=== PATIENT | male | born 1945 | race Caucasian/White ===

== ENCOUNTER 2017-02-22 08:19 | Inpatient (IN) | payer BC, MEDICARE ==
[~2017-02-22] VITALS: Ht 188 cm; Wt 81.0 kg
[2017-02-22 08:29] VITALS: BP 150/70; PULSE 67; RESP 18; TEMP 98.1; O2SAT 96
--- NOTE | 2017-02-22 09:17 | PD ---
HPI Chief Complaint: Fall Time Seen by Provider: 09:00 Travel History International Travel<30 days: No Contact w/Intl Traveler<30days: No Traveled to known affect area: No History of Present Illness HPI 71-year-old male complains of left hip pain and right chest wall pain. Patient states that he fell 5 days ago and injured his right chest wall. Patient states that he has sharp pain localized the posterior aspect the right lower rib cage area. Patient fell this morning and complained left hip pain. Patient denies any headache. Patient denies any head injury. Patient denies any neck pain. Patient denies any shortness of breath. Patient denies abdominal pain. Patient denies any back pain. Patient denies any focal weakness or numbness of the extremity. Patient has history of back surgery in the past. Patient has history hypothyroidism and constipation. PFSH Social History Alcohol Use: No Tobacco Use: No Substance Use: No Allergies-Medications (Allergen,Severity, Reaction): Uncoded Allergies: All Mycin's (Allergy, Mild, 02/22/17) Review of Systems General / Constitutional: No: Fever Eyes: No: Visual changes HENT: No: Headaches Cardiovascular: No: Chest Pain or Discomfort Respiratory: No: Shortness of Breath Gastrointestinal: No: Abdominal Pain Genitourinary: No: Dysuria Musculoskeletal: Positive: Pain Skin: No Rash Neurologic: No: Weakness Psychiatric: No: Depression Endocrine: No: Polydipsia Hematologic/Lymphatic: No: Easy Bruising Physical Exam Narrative GENERAL: Well-nourished, well-developed patient. SKIN: Focused skin assessment warm/dry. HEAD: Normocephalic. EYES: No scleral icterus. No injection or drainage. NECK: Supple, trachea midline. No JVD or lymphadenopathy. CARDIOVASCULAR: Regular rate and rhythm without murmurs, gallops, or rubs. RESPIRATORY: Breath sounds equal bilaterally. No accessory muscle use. GASTROINTESTINAL: Abdomen soft, non-tender, nondistended. MUSCULOSKELETAL: Mild tenderness on Palpation right rib cage area midaxial line the mid back area. No crepitus no deformity noted. Breath sounds equal bilaterally. Patient has moderate to severe tenderness on palpation left hip. Unable to elicit range of motion of the left hip secondary to pain. Sensorimotor function distally intact. BACK: Nontender without obvious deformity. No CVA tenderness. Neurologic exam normal. Data Data Last Documented VS Vital Signs Date Time Temp Pulse Resp B/P (MAP) Pulse Ox O2 Delivery O2 Flow Rate FiO2 02/22/17 09:35 96 02/22/17 08:41 Room Air 02/22/17 08:29 98.1 67 18 150/70 (96) Orders Orders Electrocardiogram (02/22/17 09:06) Complete Blood Count With Diff (02/22/17 09:06) Comprehensive Metabolic Panel (02/22/17 09:06) Prothrombin Time / Inr (Pt) (02/22/17 09:06) Act Partial Throm Time (Ptt) (02/22/17 09:06) Urinalysis - C+S If Indicated (02/22/17 09:06) Chest, Single Ap (02/22/17 09:06) Iv Access Insert/Monitor (02/22/17 09:06) Ecg Monitoring (02/22/17 09:06) Oximetry (02/22/17 09:06) Hip, Uni(Ap&Lat) W Ap Pelvis (02/22/17 09:06) Sodium Chlor 0.9% 1000 Ml Inj (Ns 1000 M (02/22/17 11:00) Morphine Inj (Morphine Inj) (02/22/17 11:00) Ondansetron Inj (Zofran Inj) (02/22/17 11:00) Type And Screen (02/22/17 10:58) Consult Orthopedic (02/22/17 ) Labs Laboratory Tests Test 02/22/17 09:20 White Blood Count 8.9 TH/MM3 Red Blood Count 4.17 MIL/MM3 Hemoglobin 9.8 GM/DL Hematocrit 31.2 % Mean Corpuscular Volume 74.8 FL Mean Corpuscular Hemoglobin 23.5 PG Mean Corpuscular Hemoglobin Concent 31.5 % Red Cell Distribution Width 18.0 % Platelet Count 212 TH/MM3 Mean Platelet Volume 7.6 FL Neutrophils (%) (Auto) 90.7 % Lymphocytes (%) (Auto) 3.6 % Monocytes (%) (Auto) 5.2 % Eosinophils (%) (Auto) 0.1 % Basophils (%) (Auto) 0.4 % Neutrophils # (Auto) 8.1 TH/MM3 Lymphocytes # (Auto) 0.3 TH/MM3 Monocytes # (Auto) 0.5 TH/MM3 Eosinophils # (Auto) 0.0 TH/MM3 Basophils # (Auto) 0.0 TH/MM3 CBC Comment DIFF FINAL Differential Comment Prothrombin Time 10.5 SEC Prothromb Time International Ratio 1.0 RATIO Activated Partial Thromboplast Time 27.0 SEC Blood Urea Nitrogen 20 MG/DL Creatinine 1.08 MG/DL Random Glucose 104 MG/DL Total Protein 6.7 GM/DL Albumin 3.5 GM/DL Calcium Level 8.7 MG/DL Alkaline Phosphatase 86 U/L Aspartate Amino Transf (AST/SGOT) 18 U/L Alanine Aminotransferase (ALT/SGPT) 16 U/L Total Bilirubin 0.5 MG/DL Sodium Level 140 MEQ/L Potassium Level 4.2 MEQ/L Chloride Level 106 MEQ/L Carbon Dioxide Level 22.7 MEQ/L Anion Gap 11 MEQ/L Estimat Glomerular Filtration Rate 67 ML/MIN [facility] Medical Decision Making Medical Screen Exam Complete: Yes Emergency Medical Condition: Yes Interpretation(s) Last Impressions Chest X-Ray 02/22/17 0906 Signed Impressions: Service Date/Time: Wednesday, February 22, 2017 10:11 - CONCLUSION: 1. No displaced rib fractures or pneumothorax. 2. Mild right lung base atelectasis. Carlos Manuel Steen MD 10:40 AM. X-ray left hip show subcapital femoral neck fracture. CBC WBC 8.9. Hemoglobin 9.8 hematocrit 31.2. MCV 74.8. 90 neutrophil. CMP within normal limit. Differential Diagnosis Differential diagnosis including contusion, fracture, dislocation. Narrative Course 71-year-old male with left hip injury and right chest wall injury. Right chest wall injury 5 days ago and left hip injury this morning. Normal saline solution 100 cc an hour. Morphine 2 mg IV. Zofran 4 mg IV. Patient will be admitted to the medical service with orthopedist consultation. Pending surgery. Diagnosis Primary Impression: Fracture of femoral neck, left, closed Qualified Codes: S72.002A - Fracture of unspecified part of neck of left femur , initial encounter for closed fracture Admitting Information Admitting Physician Requests: Admit Geovanny Ross MD Feb 22, 2017 09:17
[2017-02-22 09:35] VITALS: O2SAT 96
[2017-02-22 09:39] LABS: AUTOMATED NEUTROPHIL # 8.1 TH/MM3 (1.8-7.7); BASOPHIL % 0.4 % (0.0-2.0); EOSINOPHIL % 0.1 % (0.0-4.0); HEMATOCRIT 31.2 % (39.0-51.0); HEMO FLAGS DIFF FINAL; LYMPH % 3.6 % (9.0-44.0); LYMPHOCYTE # 0.3 TH/MM3 (1.0-4.8); MEAN CELL VOLUME 74.8 FL (80.0-100.0); MEAN CORPUSCULAR HEMOGLOBIN 23.5 PG (27.0-34.0); MEAN CORPUSCULAR HGB CONC 31.5 % (32.0-36.0); MONO % 5.2 % (0.0-8.0); NEUT % 90.7 % (16.0-70.0); PLATELET COUNT 212 TH/MM3 (150-450); RED BLOOD COUNT 4.17 MIL/MM3 (4.50-5.90); WHITE BLOOD COUNT 8.9 TH/MM3 (4.0-11.0)
[2017-02-22 09:50] LABS: PROTHROMBIN TIME - PATIENT 10.5 SEC (9.8-11.6)
[2017-02-22 10:00] LABS: ANION GAP 11 MEQ/L (5-15); AST (GOT) 18 U/L (15-37); BICARBONATE 22.7 MEQ/L (21.0-32.0); BLOOD UREA NITROGEN 20 MG/DL (7-18); CHLORIDE 106 MEQ/L (98-107); GLOMERULAR FILTRATION RATE 67 ML/MIN (>89); POTASSIUM 4.2 MEQ/L (3.5-5.1); SODIUM (NA) 140 MEQ/L (136-145)
[2017-02-22 10:04] LABS: ALKALINE PHOSPHATASE 86 U/L (45-117); ALT (GPT) 16 U/L (12-78); TOTAL BILIRUBIN ADULT 0.5 MG/DL (0.2-1.0)
--- NOTE | 2017-02-22 10:31 | RADRPT ---
EXAM DATE/TIME: 02/22/2017 10:11 [facility] COMPARISON: No previous studies available for comparison. INDICATIONS : Right posterior rib pain after falling last night. MEDICAL HISTORY : Chronic obstructive pulmonary disease. SURGICAL HISTORY : Right shoulder replacement. ENCOUNTER: Initial ACUITY: 2 days PAIN SCORE: 10/10 LOCATION: Right posterior rib pain. FINDINGS: Mild diffuse interstitial prominence with mild linear brain opacities at the right lung base. No sign ificant pneumothorax. Cardiac silhouette is within normal limits. Slight mediastinal prominence is li lakshmi due to rotation and portable technique. No displaced rib fractures are noted. Right shoulder art hroplasty in place. CONCLUSION: 1. No displaced rib fractures or pneumothorax. 2. Mild right lung base atelectasis. Carlos Manuel Steen MD on February 22, 2017 at 10:27 Board Certified Radiologist. This report was verified electronically.
--- NOTE | 2017-02-22 10:43 | RADRPT ---
EXAM DATE/TIME: 02/22/2017 09:57 [facility] COMPARISON: No previous studies available for comparison. INDICATIONS : Left hip pain after falling last night. MEDICAL HISTORY : Chronic obstructive pulmonary disease. SURGICAL HISTORY : Fusion, lumbar. ENCOUNTER: Initial ACUITY: 2 days PAIN SCORE: 10/10 LOCATION: Left posterior femur. FINDINGS: Examination is abnormal. There is a subcapital left femoral neck fracture. The remaining osseous stru ctures are intact. Joint spaces are grossly anatomic. Surgical sutures are noted in the lower lumbar spine. No significant soft tissue pneumonia. CONCLUSION: 1. Subcapital left femoral neck fracture. Carlos Manuel Steen MD on February 22, 2017 at 10:39 Board Certified Radiologist. This report was verified electronically.
[2017-02-22] MEDS ORDERED: ONDANSETRON HCL 4 MG/2 ML VIAL IV PUSH ONE ×2 (11:00→12:00)
[2017-02-22] MEDS ORDERED: MORPHINE SULFATE 2 MG/ML INJ IV PUSH ONE (11:00)
[2017-02-22] MEDS: SODIUM CHLOR 0.9% 1000 ML INJ 1,000 ML IV SCH ×2 (11:22→15:00)
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
[2017-02-22] MEDS ORDERED: HYDR-3580 PO (11:41)
[2017-02-22] MEDS ORDERED: XARE10TA PO (11:41)
[2017-02-22] MEDS ORDERED: CALCTAB19 PO (11:41)
[2017-02-22] MEDS ORDERED: WALKER/ADULT/FO1 MIS (11:41)
[2017-02-22] MEDS ORDERED: VITA500012 PO (11:41)
[2017-02-22] MEDS ORDERED: VITA2000 PO (11:41)
[2017-02-22] MEDS ORDERED: ASPI-183 PO (11:41)
[2017-02-22] MEDS ORDERED: ROCURONIUM INJ 50 MG/5 ML SYRINGE IV PUSH ONE (12:00)
[2017-02-22] MEDS ORDERED: PROPOFOL 200 MG/20 ML AMP IV ONE (12:00)
[2017-02-22] MEDS ORDERED: ePHEDrine/NS 25 MG/5 ML SYRINGE IV ONE (12:00)
[2017-02-22] MEDS ORDERED: GLYCOPYRROLATE 1 MG/5 ML SYRINGE IV PUSH ONE (12:00)
[2017-02-22] MEDS ORDERED: DEXAMETHASONE SOD PHOS 4 MG/ML VIAL IV ONE (12:00)
[2017-02-22] MEDS ORDERED: NEOSTIGMINE 5 MG/5 ML SYRINGE IV PUSH ONE (12:00)
[2017-02-22] MEDS ORDERED: LIDOCAINE HCL 1% PF 5 ML SYRINGE OTHER ONE (12:00)
--- NOTE | 2017-02-22 12:30 | RADRPT ---
EXAM DATE/TIME: 02/22/2017 11:56 [facility] COMPARISON: No previous studies available for comparison. INDICATIONS : Left knee pain after falling yesterday. MEDICAL HISTORY : Chronic obstructive pulmonary disease. SURGICAL HISTORY : Fusion, lumbar. ENCOUNTER: Initial ACUITY: 2 days PAIN SCORE: 7/10 LOCATION: Left patella. FINDINGS: Two view examination of the left knee demonstrates no evidence of fracture or dislocation. Some william ening of the femoral condyles without acute fracture Bony mineralization is normal. The suprapatella r soft tissues have a normal configuration. CONCLUSION: Unremarkable limited examination of the left knee. Pasquale Martinez MD on February 22, 2017 at 12:27 Board Certified Radiologist. This report was verified electronically.
[2017-02-22 12:39] VITALS: BP 142/63; PULSE 75; RESP 16; O2SAT 96
[2017-02-22] MEDS ORDERED: ACETAMINOPHEN 1000 MG/100 ML 100 ML IV ONE (13:05)
[2017-02-22] MEDS ORDERED: ceFAZolin INJ 1,000 MG VIAL ONE (13:23)
[2017-02-22] MEDS ORDERED: ceFAZolin 2 GM PREMIX 50 ML ONE (13:23)
[2017-02-22] MEDS ORDERED: TIRO150C PO (13:33)
[2017-02-22] MEDS ORDERED: LINA290C PO (13:33)
[2017-02-22] MEDS ORDERED: FENT50DI T-DERMAL (13:33)
[2017-02-22] MEDS ORDERED: LACTATED RINGER'S 1000 ML IV PRN (14:15)
[2017-02-22] MEDS ORDERED: SODIUM CHLORID 0.9% 500 ML IV PRN (14:15)
[2017-02-22] MEDS ORDERED: METOPROLOL TARTRATE 25 MG TAB PO PRN (14:15)
[2017-02-22] MEDS ORDERED: CHLORHEXIDINE GLUCONATE 2 % 1 PACK (2 CLOTHS) TOPICAL PRN (14:15)
[2017-02-22] MEDS ORDERED: POVIDONE IODINE 5% (ANTISEPSIS KIT) 4 APPLICATIONS EACH NARE PRN (14:15)
--- NOTE | 2017-02-22 15:08 | PD.OP ---
cc: Saran Arguello MD Operative Report Date of Surgery: Feb 22, 2017 Preoperative Diagnosis: Left femoral neck fracture Postoperative Diagnosis: Procedure: Left hip hemiarthroplasty Anesthesia: Gen. Surgeon: Saran Arguello Narrow Gauge Brakeman(s): JAMES Tierney PA-C The surgical procedure was assisted by my physician trust manager assistant. My P.A. presence was necessary throughout this case for the manipulation and positioning of the surgical extremity. My P.A. was assisting me throughout the duration of this procedure. The skill set of a physician trust manager assistant was medically necessary to complete this procedure. During the surgical case the cardiac cath technologist was working at the back table and the physician trust manager assistant was directly assisting me. Operation and Findings: PLAN OF ACTIVITY Weight bear as tolerated. IMPLANTS USED DePuy Corail size 16 stem with size [3] bipolar head and [+5] neck. DRAIN: 7 mm Sylvester-To drain DETAILS OF PROCEDURE This patient was brought into the operating room and placed on the OR table. The patient was given anesthesia. The patient received IV antibiotics. The patient was then placed in lateral decubitus position. The hip and leg were prepped with alcohol, followed by Hibiclens and draped in a usual sterile fashion. Clean air was used for this procedure. Time out procedure was performed. The procedure began with a 5 inch incision over the posterolateral hip. The subcutaneous tissue was dissected with the Bovie. The iliotibial band were split in line with fibers. The Charnley retractor was placed. The piriformis and external rotators were released from the femur and tagged with a #1 Vicryl suture. The capsule is now incised and tagged with #1 Vicryl. The femoral neck fracture was now visualized. A corkscrew was now used to remove the femoral head. The femoral head was sized and measured. Soft tissue was now protected. The hip skid was placed underneath the femoral neck. An oscillating saw was used to make a femoral neck cut. At this point attention was turned to preparation of the proximal femur. A box osteotome was used to remove the lateral cortex of the femoral neck. The T- handle reamer was used to open the femoral canal. Next, the canal was broached. A lateralizing reamer was used to help lateralize the prosthesis. At this point a trial head and neck were placed. The hip was reduced. The patient was found to have excellent stability with good range of motion. Trial components were removed. Soft tissue and bone were thoroughly irrigated. A Corail stem was now opened. The stem was now impacted into the proximal femur. Care was taken to keep appropriate anteversion. The head and neck were now impacted onto the stem. The hip was again reduced. The hip was found to have good range of motion and good stability. Leg lengths were clinically equal. The wound was thoroughly irrigated. The capsule, piriformis and iliotibial band were closed with #1 Vicryl. Subcutaneous tissue was closed with 3-0 Vicryl. The skin was closed with juan. A sterile dressing was applied with Primapore. The patient was placed into a knee immobilizer. The patient was awakened and transferred to the recovery room in stable condition. Needle and sponge counts were correct. Saran Arguello MD Feb 22, 2017 15:08
--- NOTE | 2017-02-22 15:12 | EKG ---
Date Performed: 02/22/2017 Time Performed: 09:31:40 PTAGE: 71 years EKG: Baseline artifact present Sinus rhythm WITH OCCASIONAL SUPRAVENTRICULAR PREMATURE COMPLEXES BORDERLINE ECG NO PREVIOUS TRACING DOCTOR: Juan Seo Interpretating Date/Time 02/22/2017 15:11:05
[2017-02-22] MEDS ORDERED: MORPHINE SULFATE 4 MG/ML INJ IV PUSH PRN (15:30)
[2017-02-22] MEDS ORDERED: *morphine SULFATE 4 MG/ML PERIprocedure ONLY ONE (15:48)
[2017-02-22] MEDS ORDERED: *HYDROmorphone PF 1 MG VIAL PERIprocedural Use ONLY ONE ×2 (15:57→16:26)
[2017-02-22] MEDS ORDERED: Post-op Orders (for Pharmacy) XX ONE (16:00)
[2017-02-22] MEDS ORDERED: ERGOCALCIFEROL (VIT D2) 50,000 UNIT CAP PO ONE (16:00)
--- NOTE | 2017-02-22 16:10 | RADRPT ---
EXAM DATE/TIME: 02/22/2017 15:24 [facility] COMPARISON: HIP LEFT (AP&LAT 2/3VWS) W AP PELVIS, February 22, 2017, 9:57. INDICATIONS : Left hip post op. MEDICAL HISTORY : Chronic obstructive pulmonary disease. SURGICAL HISTORY : Fusion, lumbar. ENCOUNTER: Initial ACUITY: 1 day PAIN SCORE: 8/10 LOCATION: Left hip. FINDINGS: 4 views of the pelvis and left hip reveal diffuse osteopenia. There has been interval placement of a left hip prosthesis. This is in position. No fracture or dislocation. Surgical drain observed. 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 Lumbar orthopedic hardware partially seen within the lower lumbar spine. Injection granulomas seen overlying the left hip. CONCLUSION: Left hip prosthesis in good position. Nilton Joel Jr., MD on February 22, 2017 at 16:06 Board Certified Radiologist. This report was verified electronically.
[2017-02-22 17:00] VITALS: BP 110/60; PULSE 60; RESP 16; TEMP 97; O2SAT 94
[2017-02-22] MEDS ORDERED: DO NOT ADM ANY ANTICOAGULANT DRUGS PRN (17:15)
[2017-02-22] MEDS: ACETAMINOPHEN/HYDROcodone 325 MG/7.5 MG TAB PO PRN ×2 (17:57→20:56)
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
[2017-02-22] MEDS: ceFAZolin 2 GM PREMIX 50 ML IV SCH (19:11)
[2017-02-22 19:45] VITALS: BP 113/61; PULSE 60; RESP 17; TEMP 97.1; O2SAT 98
[2017-02-23] VITALS (9 sets, daily range): BP systolic 86–142; BP diastolic 44–71; PULSE 60–89; RESP 17–18; TEMP 96–98.2; O2SAT 93–96
[2017-02-23] MEDS: ceFAZolin 2 GM PREMIX 50 ML IV SCH ×2 (00:43→05:23)
[2017-02-23] MEDS: ACETAMINOPHEN/HYDROcodone 325 MG/7.5 MG TAB PO PRN ×6 (00:44→22:44)
[2017-02-23] MEDS: LEVOTHYROXINE SODIUM 150 MCG TAB PO SCH (05:22)
[2017-02-23] MEDS: SODIUM CHLOR 0.9% 1000 ML INJ 1,000 ML IV SCH (05:22)
[2017-02-23] MEDS ORDERED: SODIUM CHLORID 0.9% 500 ML INJ 500 ML IV ONE (06:00)
[2017-02-23 06:50] LABS: BICARBONATE 25.2 MEQ/L (21.0-32.0); POTASSIUM 4.5 MEQ/L (3.5-5.1)
[2017-02-23 06:54] LABS: AUTOMATED NEUTROPHIL # 7.9 TH/MM3 (1.8-7.7); BASOPHIL # 0.1 TH/MM3 (0-0.2); BASOPHIL % 0.6 % (0.0-2.0); EOSINOPHIL # 0.2 TH/MM3 (0-0.4); EOSINOPHIL % 2.5 % (0.0-4.0); HEMATOCRIT 25.9 % (39.0-51.0); LYMPH % 7.8 % (9.0-44.0); LYMPHOCYTE # 0.7 TH/MM3 (1.0-4.8); MEAN CELL VOLUME 75.3 FL (80.0-100.0); MEAN CORPUSCULAR HEMOGLOBIN 23.9 PG (27.0-34.0); MEAN CORPUSCULAR HGB CONC 31.7 % (32.0-36.0); NEUT % 82.1 % (16.0-70.0); PLATELET COUNT 172 TH/MM3 (150-450); RED BLOOD COUNT 3.44 MIL/MM3 (4.50-5.90); WHITE BLOOD COUNT 9.6 TH/MM3 (4.0-11.0)
[2017-02-23 06:55] LABS: HEMO FLAGS AUTO DIFF
--- NOTE | 2017-02-23 06:56 | PD.ORT.PN ---
Subjective Subjective Remarks Resting comfortably. No new complaints Objective Vitals Vital Signs Date Time Temp Pulse Resp B/P (MAP) Pulse Ox O2 Delivery O2 Flow Rate FiO2 02/23/17 04:00 97.4 62 18 95/49 (64) 95 02/23/17 00:00 97.8 72 18 98/44 (62) 93 02/22/17 19:45 97.1 60 17 113/61 (78) 98 02/22/17 17:00 97.0 60 16 110/60 (77) 94 02/22/17 16:30 59 16 121/58 (79) 95 Nasal Cannula 2 02/22/17 16:15 51 16 113/57 (75) 96 Nasal Cannula 2 02/22/17 16:00 55 16 151/86 (107) 93 Nasal Cannula 2 02/22/17 15:45 79 16 133/83 (100) 91 Nasal Cannula 2 02/22/17 15:29 97.2 81 16 113/90 (98) 92 Nasal Cannula 2 02/22/17 12:39 75 16 142/63 (89) 96 Room Air 02/22/17 09:35 96 02/22/17 08:41 96 Room Air 02/22/17 08:29 98.1 67 18 150/70 (96) 96 I/O 02/22/17 02/22/17 02/22/17 02/23/17 02/23/17 02/23/17 07:00 15:00 23:00 07:00 15:00 23:00 Intake Total 400 ml 290 ml 120 ml Output Total 3750 ml 170 ml 150 ml Balance -3350 ml 120 ml -30 ml Intake Oral 240 ml 120 ml IV Total 50 ml Other 400 ml Output Urine Total 600 ml 150 ml 150 ml Drainage Total 20 ml Estimated Blood Loss 150 ml Other 3000 ml # Bowel Movements 0 0 Result Diagram: 02/22/17 0920 02/23/17 0602 Other Results Laboratory Tests Test 02/22/17 09:20 Prothromb Time International Ratio 1.0 RATIO Prothrombin Time 10.5 SEC (9.8-11.6) Imaging Last 24 hours Impressions Hip and Pelvis X-Ray 02/22/17 0906 Signed Impressions: Service Date/Time: Wednesday, February 22, 2017 09:57 - CONCLUSION: 1. Subcapital left femoral neck fracture. Carlos Manuel Steen MD Chest X-Ray 02/22/17 0906 Signed Impressions: Service Date/Time: Wednesday, February 22, 2017 10:11 - CONCLUSION: 1. No displaced rib fractures or pneumothorax. 2. Mild right lung base atelectasis. Carlos Manuel Steen MD Objective Remarks Left lower extremity: Clean dry dressings intact. Knee immobilizer in place. Knee immobilizer adjusted. Distally intact sensation good capillary refills with active dorsiflexion plantar flexion of foot Assessment & Plan Assessment and Plan Left hip hemiarthroplasty POD 1 Physical therapy weightbearing as tolerated with posterior hip precautions Knee immobilizer while in bed Lovenox Case management for rehabilitation placement Incentive spirometry We'll plan for discharge follow-up appointment with Magda or GALI in 2 weeks Ludwin Bloom Jr. Feb 23, 2017 06:56
[2017-02-23 07:36] LABS: OVALOCYTES 1+ (NORMAL); SCAN/DIFF AUTO DIFF CONFIRMED
--- NOTE | 2017-02-23 08:18 | HHI.PR ---
Subjective Remarks Pain is controlled by meds. no fever or chills. No n/v/d. Did not have a BM. No chest pain or sob. Objective Vitals Vital Signs Date Time Temp Pulse Resp B/P (MAP) Pulse Ox O2 Delivery O2 Flow Rate FiO2 02/23/17 07:40 Nasal Cannula 2.00 02/23/17 04:00 97.4 62 18 95/49 (64) 95 02/23/17 00:00 97.8 72 18 98/44 (62) 93 02/22/17 19:45 97.1 60 17 113/61 (78) 98 02/22/17 17:00 97.0 60 16 110/60 (77) 94 02/22/17 16:30 59 16 121/58 (79) 95 Nasal Cannula 2 02/22/17 16:15 51 16 113/57 (75) 96 Nasal Cannula 2 02/22/17 16:00 55 16 151/86 (107) 93 Nasal Cannula 2 02/22/17 15:45 79 16 133/83 (100) 91 Nasal Cannula 2 02/22/17 15:29 97.2 81 16 113/90 (98) 92 Nasal Cannula 2 02/22/17 12:39 75 16 142/63 (89) 96 Room Air 02/22/17 09:35 96 02/22/17 08:41 96 Room Air 02/22/17 08:29 98.1 67 18 150/70 (96) 96 I/O 02/22/17 02/22/17 02/22/17 02/23/17 02/23/17 02/23/17 07:00 15:00 23:00 07:00 15:00 23:00 Intake Total 400 ml 290 ml 120 ml Output Total 3750 ml 170 ml 150 ml Balance -3350 ml 120 ml -30 ml Intake Oral 240 ml 120 ml IV Total 50 ml Other 400 ml Output Urine Total 600 ml 150 ml 150 ml Drainage Total 20 ml Estimated Blood Loss 150 ml Other 3000 ml # Bowel Movements 0 0 Result Diagram: 02/23/17 0602 02/23/17 0602 Imaging Last Impressions Hip and Pelvis X-Ray 02/22/17 1500 Signed Impressions: Service Date/Time: Wednesday, February 22, 2017 15:24 - CONCLUSION: Left hip prosthesis in good position. Nilton Joel Jr., MD Knee X-Ray 02/22/17 1132 Signed Impressions: Service Date/Time: Wednesday, February 22, 2017 11:56 - CONCLUSION: Unremarkable limited examination of the left knee. Pasquale Martinez MD Chest X-Ray 02/22/17 0906 Signed Impressions: Service Date/Time: Wednesday, February 22, 2017 10:11 - CONCLUSION: 1. No displaced rib fractures or pneumothorax. 2. Mild right lung base atelectasis. Carlos Manuel Steen MD Objective Remarks GENERAL: This is a well-nourished, but somewhat weak appearing elderly man. CARDIOVASCULAR: Regular rate and rhythm without murmurs, gallops, or rubs. RESPIRATORY: Clear to auscultation. Breath sounds equal bilaterally. No wheezes , rales, or rhonchi. GASTROINTESTINAL: Abdomen soft, non-tender, nondistended. No hepato-splenomegaly , or palpable masses. No guarding. MUSCULOSKELETAL: Left hip and leg and reduced ROM due to fracture of left femoral neck. Blood flow and sensation intact in that leg. NEUROLOGICAL: Awake and alert. Cranial nerves II through XII intact. Motor and sensory grossly within normal limits. Five out of 5 muscle strength in all muscle groups. Normal speech. A/P Problem List: (1) Fracture of femoral neck, left, closed ICD Code: S72.002A - Fracture of unspecified part of neck of left femur, initial encounter for closed fracture Status: Acute Assessment and Plan Left femoral Neck Fracture - orthopedics (Dr. Man) s/p ORIF 02/22 - PT consult Chronic Pain - Multiple pain medications including Fentanyl patch - Consider tolerance if pain not adequately controlled - Holding home pain meds for now Chronic Constipation - Takes Linzess at home, not on formulary, gave permission to use DVT Prophylaxis - Lovenox Discharge Planning - Fell from a mobility scooter, so likely he will need a SNF-Rehab at [facility] when cleared by ortho Problem Qualifiers (1) Fracture of femoral neck, left, closed: Qualified Codes: S72.002A - Fracture of unspecified part of neck of left femur , initial encounter for closed fracture Jessica Alatorre MD Feb 23, 2017 08:18
[2017-02-23] MEDS ORDERED: FENT50DI T-DERMAL (08:20)
[2017-02-23] MEDS: CHOLECALCIFEROL (VIT D3) 5000 UNIT CAP PO SCH (10:22)
[2017-02-23] MEDS ORDERED: ONDANSETRON HCL 4 MG/2 ML VIAL IV PUSH PRN ×2 (14:15→14:30)
[2017-02-23] MEDS: ENOXAPARIN SODIUM 30 MG/0.3 ML SYRINGE SQ SCH (15:06)
--- NOTE | 2017-02-23 15:06 | HHI.DS ---
Discharge Summary Admission Date Feb 22, 2017 at 11:36 Discharge Date: Feb 23, 2017 Admitting Diagnosis fracture left femoral neck (1) Fracture of femoral neck, left, closed ICD Code: S72.002A - Fracture of unspecified part of neck of left femur, initial encounter for closed fracture Status: Acute Brief History - From Admission 71M with h/o hypothyroidism and recent fall with right bruised ribs had a fall of his mobility scooter when he drove off a sidewalk at [employer]. He denies any LOC or symptoms of stroke, basically he was just having a conversation and took his eyes off of the sidewalk. He is visiting his son from [place]. He admits he has been feeling weak over the past year or so, blames it on age. He denies any other major medical issues at this time. CBC/BMP: 02/23/17 0602 02/23/17 0602 Significant Findings Laboratory Tests Test 02/22/17 09:20 02/23/17 06:02 Red Blood Count 4.17 MIL/MM3 (4.50-5.90) 3.44 MIL/MM3 (4.50-5.90) Hemoglobin 9.8 GM/DL (13.0-17.0) 8.2 GM/DL (13.0-17.0) Hematocrit 31.2 % (39.0-51.0) 25.9 % (39.0-51.0) Mean Corpuscular Volume 74.8 FL (80.0-100.0) 75.3 FL (80.0-100.0) Mean Corpuscular Hemoglobin 23.5 PG (27.0-34.0) 23.9 PG (27.0-34.0) Mean Corpuscular Hemoglobin Concent 31.5 % (32.0-36.0) 31.7 % (32.0-36.0) Red Cell Distribution Width 18.0 % (11.6-17.2) 18.0 % (11.6-17.2) Neutrophils (%) (Auto) 90.7 % (16.0-70.0) 82.1 % (16.0-70.0) Lymphocytes (%) (Auto) 3.6 % (9.0-44.0) 7.8 % (9.0-44.0) Neutrophils # (Auto) 8.1 TH/MM3 (1.8-7.7) 7.9 TH/MM3 (1.8-7.7) Lymphocytes # (Auto) 0.3 TH/MM3 (1.0-4.8) 0.7 TH/MM3 (1.0-4.8) Blood Urea Nitrogen 20 MG/DL (7-18) 22 MG/DL (7-18) Estimat Glomerular Filtration Rate 67 ML/MIN (>89) 61 ML/MIN (>89) 25-Hydroxy Vitamin D Total 23.6 ng/ML (30-100) Ovalocytes 1+ (NORMAL) Calcium Level 8.1 MG/DL (8.5-10.1) Chloride Level 110 MEQ/L (98-107) Imaging Last Impressions Hip and Pelvis X-Ray 02/22/17 1500 Signed Impressions: Service Date/Time: Wednesday, February 22, 2017 15:24 - CONCLUSION: Left hip prosthesis in good position. Nilton Joel Jr., MD Knee X-Ray 02/22/17 1132 Signed Impressions: Service Date/Time: Wednesday, February 22, 2017 11:56 - CONCLUSION: Unremarkable limited examination of the left knee. Pasquale Martinez MD Chest X-Ray 02/22/17 0906 Signed Impressions: Service Date/Time: Wednesday, February 22, 2017 10:11 - CONCLUSION: 1. No displaced rib fractures or pneumothorax. 2. Mild right lung base atelectasis. Carlos Manuel Steen MD PE at Discharge GENERAL: This is a well-nourished, but somewhat weak appearing elderly man. CARDIOVASCULAR: Regular rate and rhythm without murmurs, gallops, or rubs. RESPIRATORY: Clear to auscultation. Breath sounds equal bilaterally. No wheezes , rales, or rhonchi. GASTROINTESTINAL: Abdomen soft, non-tender, nondistended. No hepato-splenomegaly , or palpable masses. No guarding. MUSCULOSKELETAL: Left hip and leg and reduced ROM due to fracture of left femoral neck. Blood flow and sensation intact in that leg. NEUROLOGICAL: Awake and alert. Cranial nerves II through XII intact. Motor and sensory grossly within normal limits. Five out of 5 muscle strength in all muscle groups. Normal speech. Pt Condition on Discharge: Stable Discharge Disposition: Discharge to SNF Discharge Time: > 30 minutes Discharge Instructions DIET: Follow Instructions for: Heart Healthy Diet Activities you can perform: Weight Bearing as Nathan Follow up Referrals: Orthopedics - 2 Weeks @ [facility] with Saran Man MD PCP Follow-up - 2-3 Days New Medications: Aspirin (Aspirin) 325 Mg Tab 325 MG PO DAILY for blood clot prevention, #14 TAB 0 Refills Calcium Carbonate-Vitamin D (Calcium 600+D 200) 600-200 Mg-Unit Tab 1 TAB PO BID for Nutritional Supplement for 30 Days, #60 TAB 0 Refills Cholecalciferol (Vitamin D3) 2,000 Unit Cap 2000 UNITS PO DAILY for Nutritional Supplement, #56 CAP 0 Refills Ergocalciferol (Ergocalciferol) 50,000 Unit Cap 26977 UNITS PO Q7D for Nutritional Supplement, #56 CAP Hydrocodone-Acetaminophen (Hydrocodone-Acetaminophen) 7.5 Mg-325 Mg Tab 1 TAB PO Q4H PRN for PAIN, #60 TAB 0 Refills Rivaroxaban (Xarelto) 10 Mg Tab 10 MG PO DAILY for Blood Clot Prevention for 14 Days, #14 TAB 0 Refills Walker/Adult/Folding (Walker/Adult/Folding) 1 Mis Mis EA .ROUTE DIRECTED, #1 0 Refills Continued Medications: Fentanyl Patch 72 HR (Fentanyl Patch 72 HR) 50 Mcg/Hr Patch 50 MCG T-DERMAL Q72H for Pain Management, #10 PATCH 0 Refills (This prescription has been renewed) Remove old patch when new one placed. Levothyroxine (Tirosint) 150 Mcg Cap 150 MCG PO DAILY for Thyroid, #30 CAP 0 Refills Linaclotide (Linzess) 290 Mcg Cap 290 MCG PO DAILY, CAP 0 Refills Jessica Alatorre MD Feb 23, 2017 15:06
[2017-02-23] MEDS ORDERED: fentaNYL 50 MCG/HR PATCH T-DERMAL SCH (21:00)
[2017-02-23] MEDS ORDERED: MORPHINE SULFATE 2 MG/ML INJ IV PUSH PRN (21:30)
[2017-02-24] MEDS: ACETAMINOPHEN/HYDROcodone 325 MG/7.5 MG TAB PO PRN ×7 (01:54→22:40)
[2017-02-24] MEDS: SODIUM CHLOR 0.9% 1000 ML INJ 1,000 ML IV SCH ×3 (01:55→23:00)
[2017-02-24] MEDS: LEVOTHYROXINE SODIUM 150 MCG TAB PO SCH (06:33)
--- NOTE | 2017-02-24 07:53 | PD.ORT.PN ---
Subjective Subjective Remarks Resting comfortably. No new complaints Objective Vitals Vital Signs Date Time Temp Pulse Resp B/P (MAP) Pulse Ox O2 Delivery O2 Flow Rate FiO2 02/23/17 23:27 97.8 60 18 117/66 (83) 95 02/23/17 19:55 98.2 72 18 136/71 (92) 95 02/23/17 18:15 96 Nasal Cannula 2.00 02/23/17 16:00 96.0 89 17 142/70 (94) 96 02/23/17 13:04 96 Nasal Cannula 2.00 02/23/17 12:00 96.9 70 18 102/58 (73) 93 02/23/17 08:00 97.8 63 18 86/52 (63) 96 I/O 02/23/17 02/23/17 02/23/17 02/24/17 02/24/17 02/24/17 07:00 15:00 23:00 07:00 15:00 23:00 Intake Total 120 ml 480 ml 480 ml 360 ml Output Total 150 ml 300 ml 650 ml Balance -30 ml 180 ml 480 ml -290 ml Intake Oral 120 ml 480 ml 480 ml 360 ml Output Urine Total 150 ml 300 ml 650 ml Bladder Scan Volume Amount 254 ml 654 ml # Voids 0 # Bowel Movements 0 0 0 0 Result Diagram: 02/23/17 0602 02/23/17 0602 Imaging Last 24 hours Impressions Hip and Pelvis X-Ray 02/22/17905 Signed Impressions: Service Date/Time: Wednesday, February 22, 2017 09:57 - CONCLUSION: 1. Subcapital left femoral neck fracture. Carlos Manuel Steen MD Chest X-Ray 02/22/17905 Signed Impressions: Service Date/Time: Wednesday, February 22, 2017 10:11 - CONCLUSION: 1. No displaced rib fractures or pneumothorax. 2. Mild right lung base atelectasis. Carlos Manuel Steen MD Objective Remarks Left lower extremity: Clean dry dressings intact. Knee immobilizer in place. Knee immobilizer adjusted. Distally intact sensation good capillary refills with active dorsiflexion plantar flexion of foot Assessment & Plan Assessment and Plan Left hip hemiarthroplasty POD 2 Physical therapy weightbearing as tolerated with posterior hip precautions Knee immobilizer while in bed Lovenox Case management for rehabilitation placement Dry dressings over incision. Leave in place Incentive spirometry We'll plan for discharge follow-up appointment with Magda or GALI in 2 weeks Ludwin Bloom Jr. Feb 24, 2017 07:53
[2017-02-24 08:00] VITALS: BP 123/74; PULSE 68; RESP 18; TEMP 97.5; O2SAT 95
[2017-02-24] MEDS: CHOLECALCIFEROL (VIT D3) 5000 UNIT CAP PO SCH (08:00)
[2017-02-24] MEDS ORDERED: DOCUSATE SODIUM 50 MG/SENNA 8.6 MG TAB PO SCH (09:00)
[2017-02-24] MEDS ORDERED: MAGNESIUM HYDROXIDE SUSP 30 ML CUP PO SCH (09:00)
--- NOTE | 2017-02-24 11:09 | HHI.PR ---
Subjective Remarks In bed feels nauseated and vomiting . Says she has achalasia and this is normal for him, says he is able to keep down some food. Antinausea meds helps some. No fever or chills. Pain is controlled by meds. No fever or chills. No constipation or diarrhea.. Objective Vitals Vital Signs Date Time Temp Pulse Resp B/P (MAP) Pulse Ox O2 Delivery O2 Flow Rate FiO2 02/24/17 08:04 Room Air 02/24/17 08:00 97.5 68 18 123/74 (90) 95 02/23/17 23:27 97.8 60 18 117/66 (83) 95 02/23/17 19:55 98.2 72 18 136/71 (92) 95 02/23/17 18:15 96 Nasal Cannula 2.00 02/23/17 16:00 96.0 89 17 142/70 (94) 96 02/23/17 13:04 96 Nasal Cannula 2.00 02/23/17 12:00 96.9 70 18 102/58 (73) 93 I/O 02/23/17 02/23/17 02/23/17 02/24/17 02/24/17 02/24/17 07:00 15:00 23:00 07:00 15:00 23:00 Intake Total 120 ml 480 ml 480 ml 360 ml Output Total 150 ml 300 ml 650 ml Balance -30 ml 180 ml 480 ml -290 ml Intake Oral 120 ml 480 ml 480 ml 360 ml Output Urine Total 150 ml 300 ml 650 ml Bladder Scan Volume Amount 254 ml 654 ml # Voids 0 # Bowel Movements 0 0 0 0 Result Diagram: 02/23/17 0602 02/23/17 0602 Imaging Last Impressions Hip and Pelvis X-Ray 02/22/17 1500 Signed Impressions: Service Date/Time: Wednesday, February 22, 2017 15:24 - CONCLUSION: Left hip prosthesis in good position. Nilton Joel Jr., MD Knee X-Ray 02/22/17 1132 Signed Impressions: Service Date/Time: Wednesday, February 22, 2017 11:56 - CONCLUSION: Unremarkable limited examination of the left knee. Pasquale Martinez MD Chest X-Ray 02/22/17 0906 Signed Impressions: Service Date/Time: Wednesday, February 22, 2017 10:11 - CONCLUSION: 1. No displaced rib fractures or pneumothorax. 2. Mild right lung base atelectasis. Carlos Manuel Steen MD Objective Remarks GENERAL: This is a well-nourished, but somewhat weak appearing elderly man. CARDIOVASCULAR: Regular rate and rhythm without murmurs, gallops, or rubs. RESPIRATORY: Clear to auscultation. Breath sounds equal bilaterally. No wheezes , rales, or rhonchi. GASTROINTESTINAL: Abdomen soft, non-tender, nondistended. No hepato-splenomegaly , or palpable masses. No guarding. MUSCULOSKELETAL: Left hip after surgery with dressing on c/d/di. Neurovascular intact. NEUROLOGICAL: Awake and alert. Cranial nerves II through XII intact. Motor and sensory grossly within normal limits. Five out of 5 muscle strength in all muscle groups. Normal speech. A/P Problem List: (1) Fracture of femoral neck, left, closed ICD Code: S72.002A - Fracture of unspecified part of neck of left femur, initial encounter for closed fracture Status: Acute Assessment and Plan Left femoral Neck Fracture - orthopedics (Dr. Man) s/p ORIF 02/22 - PT consult Chronic Pain - Multiple pain medications including Fentanyl patch - Consider tolerance if pain not adequately controlled - Holding home pain meds for now Chronic Constipation - Takes Linzess at home, not on formulary, gave permission to use H/O Achalasia, following with GI as OP. With nausea and vomiting. Antiemetics as need. DVT Prophylaxis - Lovenox Discharge Planning - Fell from a mobility scooter, s/p surgery, need a SNF-Rehab at [place]. DC when cleared by ortho, poss DC tomorrow to SNF. Patient wants to go to [place] rehab to have more PT, however was evaluated by Bautista and doesn't meet criteria. Discussed with the patient, nurse, family - at bedside. Problem Qualifiers (1) Fracture of femoral neck, left, closed: Qualified Codes: S72.002A - Fracture of unspecified part of neck of left femur , initial encounter for closed fracture Jessica Alatorre MD Feb 24, 2017 11:09
[2017-02-24 12:00] VITALS: BP 154/67; PULSE 63; RESP 18; TEMP 97.9; O2SAT 93
[2017-02-24] MEDS ORDERED: LACTULOSE SYRUP 20 GM/30 ML CUP PO PRN (12:15)
[2017-02-24] MEDS ORDERED: MAGNESIUM HYDROXIDE SUSP 30 ML CUP PO PRN (12:15)
[2017-02-24] MEDS ORDERED: SOD PHOSPHATE/SOD BIPHOSPHATE (ADULT) ENEMA 133ML RECTAL PRN (12:15)
[2017-02-24] MEDS ORDERED: SENNOSIDES 8.6 MG TAB PO PRN (12:15)
[2017-02-24] MEDS ORDERED: NALOXONE HCL 0.4 MG/ML AMP IV PUSH PRN (12:15)
[2017-02-24] MEDS ORDERED: BISACODYL 10 MG SUPP RECTAL ONE (12:15)
[2017-02-24] MEDS ORDERED: BISACODYL 10 MG SUPP RECTAL PRN (12:15)
[2017-02-24] MEDS: ENOXAPARIN SODIUM 30 MG/0.3 ML SYRINGE SQ SCH (14:50)
[2017-02-24 16:00] VITALS: BP 146/77; PULSE 78; RESP 18; TEMP 97.1; O2SAT 97
[2017-02-24 19:02] VITALS: BP 130/63; PULSE 75; RESP 18; TEMP 97.1; O2SAT 94
[2017-02-24] MEDS: DOCUSATE SODIUM 50 MG/SENNA 8.6 MG TAB PO SCH (20:56)
[2017-02-25] VITALS: BP 131/57; PULSE 62; RESP 18; TEMP 97.9; O2SAT 95
[2017-02-25] MEDS: ACETAMINOPHEN/HYDROcodone 325 MG/7.5 MG TAB PO PRN ×6 (05:00→23:12)
[2017-02-25] MEDS: LEVOTHYROXINE SODIUM 150 MCG TAB PO SCH (05:00)
[2017-02-25 08:20] VITALS: BP 139/65; PULSE 64; RESP 18; TEMP 97.3; O2SAT 93
[2017-02-25] MEDS: SODIUM CHLOR 0.9% 1000 ML INJ 1,000 ML IV SCH ×2 (09:00→17:32)
[2017-02-25] MEDS: DOCUSATE SODIUM 50 MG/SENNA 8.6 MG TAB PO SCH ×2 (09:41→19:26)
[2017-02-25] MEDS: CHOLECALCIFEROL (VIT D3) 5000 UNIT CAP PO SCH (09:41)
[2017-02-25] MEDS: BISACODYL 10 MG SUPP RECTAL SCH (09:41)
[2017-02-25 12:40] VITALS: BP 127/66; PULSE 74; RESP 18; TEMP 97.5; O2SAT 93
[2017-02-25] MEDS: ENOXAPARIN SODIUM 30 MG/0.3 ML SYRINGE SQ SCH (15:32)
--- NOTE | 2017-02-25 16:03 | HHI.PR ---
Subjective Remarks The patient was resting comfortably in bed. He states he still has not had a bowel movement. He says because he has achalasia he only drinks Ensure. He has just started to pass gas. He says that he does not have much feeling in his left lower extremity and feels very weak and it. Discussed with family and case management. Objective Vitals Vital Signs Date Time Temp Pulse Resp B/P (MAP) Pulse Ox O2 Delivery O2 Flow Rate FiO2 02/25/17 12:40 97.5 74 18 127/66 (86) 93 02/25/17 08:20 97.3 64 18 139/65 (89) 93 02/25/17 00:00 97.9 62 18 131/57 (81) 95 02/24/17 21:05 Nasal Cannula 2.00 02/24/17 19:02 97.1 75 18 130/63 (85) 94 02/24/17 18:35 2.00 02/24/17 16:00 97.1 78 18 146/77 (100) 97 I/O 02/24/17 02/24/17 02/24/17 02/25/17 02/25/17 02/25/17 07:00 15:00 23:00 07:00 15:00 23:00 Intake Total 360 ml 480 ml 360 ml 240 ml Output Total 650 ml 450 ml 400 ml Balance -290 ml 480 ml -90 ml -160 ml Intake Oral 360 ml 480 ml 360 ml 240 ml Output Urine Total 650 ml 450 ml 400 ml Bladder Scan Volume Amount 254 ml 654 ml # Bowel Movements 0 0 0 Result Diagram: 02/23/17 0602 02/23/17 0602 Imaging Last Impressions Hip and Pelvis X-Ray 02/22/17 1500 Signed Impressions: Service Date/Time: Wednesday, February 22, 2017 15:24 - CONCLUSION: Left hip prosthesis in good position. Nilton Joel Jr., MD Knee X-Ray 02/22/17 1132 Signed Impressions: Service Date/Time: Wednesday, February 22, 2017 11:56 - CONCLUSION: Unremarkable limited examination of the left knee. Pasquale Martinez MD Chest X-Ray 02/22/17 0906 Signed Impressions: Service Date/Time: Wednesday, February 22, 2017 10:11 - CONCLUSION: 1. No displaced rib fractures or pneumothorax. 2. Mild right lung base atelectasis. Carlos Manuel Steen MD Objective Remarks GENERAL: Resting comfortably in bed. SKIN: Pale. CARDIOVASCULAR: Regular rate and rhythm without murmurs, gallops, or rubs. RESPIRATORY: Clear to auscultation. Breath sounds equal bilaterally. No wheezes , rales, or rhonchi. GASTROINTESTINAL: Abdomen soft, non-tender, nondistended. No hepato-splenomegaly , or palpable masses. No guarding. MUSCULOSKELETAL: Left hip after surgery with dressing on c/d/di. Neurovascular intact. NEUROLOGICAL: Awake and alert. Cranial nerves II through XII intact. Motor and sensory grossly within normal limits. Five out of 5 muscle strength in all muscle groups. Normal speech. PSYCH: Mood and affect appropriate. Medications and IVs Current Medications Medications (Trade) Dose Ordered Sig/Ramonita Route Start Time Stop Time Status Last Admin Sodium Chloride 1,000 ml @ 100 mls/hr Q10H IV 02/22/17 11:00 02/24/17 01:55 (Lovenox Inj) 30 mg Q24H SQ 02/23/17 15:00 02/25/17 15:32 (Hannibal 7.5-325 Mg) 1 tab Q3H PRN PO 02/22/17 15:15 02/25/17 12:36 (Vitamin D3) 5,000 units DAILY PO 02/23/17 09:00 02/25/17 09:41 (Synthroid) 150 mcg DAILY@0600 PO 02/23/17 06:00 02/25/17 05:00 (Zofran Inj) 4 mg Q6H PRN IV PUSH 02/23/17 14:15 02/24/17 10:38 (Duragesic 50 Mcg Patch.72 Hr) 1 patch Q3D T-DERMAL 02/23/17 21:00 02/23/17 20:02 Miscellaneous Information 1 Q3D T-DERMAL 02/26/17 21:00 (Morphine Inj) 3 mg Q3H PRN IV PUSH 02/23/17 21:30 (Narcan Inj) 0.4 mg UNSCH PRN IV PUSH 02/24/17 12:15 (Asia-Colace) 1 tab BID PO 02/24/17 21:00 02/25/17 09:41 (Milk Of Magnesia Liq) 30 ml Q12H PRN PO 12/21/17 12:15 02/25/17 11:52 (Senokot) 17.2 mg Q12H PRN PO 02/24/17 12:15 (Dulcolax Supp) 10 mg DAILY PRN RECTAL 02/24/17 12:15 (Lactulose Liq) 30 ml DAILY PRN PO 02/24/17 12:15 02/24/17 18:36 (Dulcolax Supp) 10 mg DAILY RECTAL 02/25/17 09:00 02/25/17 09:41 (Fleets Enema (Adult)) 133 ml UNSCH PRN RECTAL 02/24/17 12:15 A/P Problem List: (1) Fracture of femoral neck, left, closed ICD Code: S72.002A - Fracture of unspecified part of neck of left femur, initial encounter for closed fracture Status: Acute Assessment and Plan Left femoral Neck Fracture - orthopedics (Dr. Man) consulted, s/p ORIF 02/22 - PT consult - pain control, weightbearing, wound care and anticoagulation per ortho. - IS. Chronic Pain - Multiple pain medications including Fentanyl patch - Consider tolerance if pain not adequately controlled - well controlled at this time. Chronic Constipation - Takes Linzess at home, not on formulary, gave permission to use - bowel regimen ordered. H/O Achalasia, following with GI as OP. With nausea and vomiting. Antiemetics as need. - drinking Ensure. Anemia Likely post-op. - follow CBC and transfuse as needed. DVT Prophylaxis - Lovenox Discharge Planning D/c to SNF once pt has a bowel movement Problem Qualifiers (1) Fracture of femoral neck, left, closed: Qualified Codes: S72.002A - Fracture of unspecified part of neck of left femur , initial encounter for closed fracture Ludwin Rodriguez DO Feb 25, 2017 16:02
[2017-02-25] MEDS: POLYETHYLENE GLYCOL 17 GM PKG PO SCH (16:11)
[2017-02-25 16:23] VITALS: BP 154/70; PULSE 82; RESP 18; TEMP 99.3; O2SAT 91
[2017-02-25 20:00] VITALS: BP 117/65; PULSE 78; RESP 18; TEMP 98.6; O2SAT 95
[2017-02-26] VITALS: BP 135/74; PULSE 79; RESP 17; TEMP 99.3; O2SAT 93
[2017-02-26] MEDS: ACETAMINOPHEN/HYDROcodone 325 MG/7.5 MG TAB PO PRN ×3 (02:14→08:49)
[2017-02-26] MEDS: SODIUM CHLOR 0.9% 1000 ML INJ 1,000 ML IV SCH (05:00)
[2017-02-26] MEDS: LEVOTHYROXINE SODIUM 150 MCG TAB PO SCH (06:05)
[2017-02-26 06:42] LABS: MEAN CELL VOLUME 74.6 FL (80.0-100.0); MEAN CORPUSCULAR HGB CONC 32.2 % (32.0-36.0); PLATELET COUNT 197 TH/MM3 (150-450); RED BLOOD COUNT 3.22 MIL/MM3 (4.50-5.90); RED CELL DISTRIBUTION WIDTH 18.6 % (11.6-17.2); REVIEW FLAG FINAL; WHITE BLOOD COUNT 4.5 TH/MM3 (4.0-11.0)
[2017-02-26 08:00] VITALS: BP 124/70; PULSE 85; RESP 18; TEMP 97.1; O2SAT 93
[2017-02-26] MEDS: POLYETHYLENE GLYCOL 17 GM PKG PO SCH (08:47)
[2017-02-26] MEDS: CHOLECALCIFEROL (VIT D3) 5000 UNIT CAP PO SCH (08:47)
[2017-02-26] MEDS: DOCUSATE SODIUM 50 MG/SENNA 8.6 MG TAB PO SCH (08:47)
[2017-02-26] MEDS: BISACODYL 10 MG SUPP RECTAL SCH (09:00)
--- NOTE | 2017-02-26 09:49 | HHI.DCPOC ---
Discharge Care Plan Diagnosis: (1) Anemia (2) Chronic pain (3) Fracture of femoral neck, left, closed Goals to Promote Your Health * To prevent worsening of your condition and complications * To maintain your health at the optimal level Directions to Meet Your Goals Take your medications as prescribed Follow your dietary instruction Follow activity as directed Keep your appointments as scheduled Take your immunizations and boosters as scheduled If your symptoms worsen call your PCP, if no PCP go to Urgent Care Center or Emergency Room Smoking is Dangerous to Your Health. Avoid second hand smoke Call the 24-hour hour crisis hotline for domestic abuse at Ludwin Rodriguez DO Feb 26, 2017 09:49
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
[2017-02-26] MEDS ORDERED: ACETAMINOPHEN/HYDROcodone 325 MG/10 MG TAB PO ONE (10:00)
[2017-02-26] MEDS ORDERED: REMOVE OLD DURAGESIC (FENTANYL) PATCH T-DERMAL SCH (21:00)
== END 2017-02-26 11:57 | DRG 470 ==
LOC: NEPE 08:19 → NEDA 11:36 → N06B 16:48
PROVIDERS: ADMIT Hospitalist; ATTEND Hospitalist
PROC: 0SRS01A Replacement of Left Hip Joint, Femoral Surface with Metal Synthetic Substitute, Uncemented, Open Approach (ICD-10-PCS; principal; 2017-02-22 13:46)
DX: S72.012A Unspecified intracapsular fracture of left femur, initial encounter for closed fracture (principal); K22.0 Achalasia of cardia; D64.9 Anemia, unspecified; E03.9 Hypothyroidism, unspecified; V98.8XXA Other specified transport accidents, initial encounter; Y93.89 Activity, other specified; Y92.831 Amusement park as the place of occurrence of the external cause; Z87.891 Personal history of nicotine dependence; G89.29 Other chronic pain; K59.09 Other constipation; R07.89 Other chest pain
CPT/HCPCS: 71010; 73502; 73560; 80048; 80053; 82306; 85025; 85027; 85610; 85730; 86850; 86900; 86901; 93005; 96374; 96375; C1776; J0131; J0690; J1100; J1170; J1650; J2270; J2405; J2710; J7030; J7040